=== PATIENT | female | born 1990 | race Caucasian/White ===

== ENCOUNTER 2024-03-27 23:35 | Emergency (ER) | payer BC, SELFPAY ==
[2024-03-27 23:37] VITALS: BP 102/56
== END 2024-03-28 00:45 ==
LOC: EMR 23:35
DX: S49.91XA Unspecified injury of right shoulder and upper arm, initial encounter (principal); W20.8XXA Other cause of strike by thrown, projected or falling object, initial encounter; Z53.21 Procedure and treatment not carried out due to patient leaving prior to being seen by health care provider
CPT/HCPCS: 73060; 73090

== ENCOUNTER → 2025-02-09 16:13 | Outpatient (REF) | payer BC, SELFPAY | LOC: RAD 16:13 | PROVIDERS: ATTENDING PHYSICIAN Family Medicine | DX: M54.12 Radiculopathy, cervical region (principal); R07.89 Other chest pain | CPT/HCPCS: 71046; 71110; 72040; 72072; 73000 ==